=== PATIENT | female | born 2000 | race Caucasian/White ===

== ENCOUNTER 2024-04-14 15:48 | Outpatient (CLI) | payer OTHER, SELFPAY ==
--- NOTE | ~2024-04-14 | US_ITS ---
EXAMINATION: US OB <= 14 weeks fetus DATE: 04/14/2024 INDICATION: Uncertain dating of TECHNIQUE: Real-time pelvic ultrasound utilizing transabdominal probe was performed. The interpretin g radiologist was not present for the study. COMPARISON: None. FINDINGS: The uterus measures 8.9 x 4.6 x 6.0 cm. There is an intrauterine gestational sac. A yolk sac and fet al pole are identified. The crown rump length measures 1.2 cm, which correlates with an estimated ges tational age of 7 weeks and 3 days. heart motion is identified measuring 144 beats per minute ( bpm) by M-mode Doppler. The right ovary measures 2.4 x 1.7 x 2.4 cm. The left ovary measures 2.9 x 1.8 x 2.6 cm. There is no free fluid in the pelvis. IMPRESSION: 1. Single living fetus with heart rate of 144 bpm. 2. Gestational age by ultrasound of 7 weeks 3 day(s) +/- 5 day(s) with ultrasound estimated date of delivery (AVE) of 11/28/2024. Reviewed, dictated and finalized at location A. IMPRESSION: 1. Single living fetus with heart rate of 144 bpm. 2. Gestational age by ultrasound of 7 weeks 3 day(s) +/- 5 day(s) with ultraso und estimated date of delivery (AVE) of 11/28/2024.
== END 2024-04-14 15:49 ==
LOC: MICIMG 15:50
PROVIDERS: PCP Nurse Practitioner Women's Health; Visit Provider Nurse Practitioner Women's Health
DX: Z36.87 Encounter for antenatal screening for uncertain dates (principal); Z3A.01 Less than 8 weeks gestation of pregnancy
CPT/HCPCS: 76801

== ENCOUNTER 2024-06-30 15:21 | Outpatient (CLI) | payer OTHER, SELFPAY ==
--- NOTE | ~2024-06-30 | US_ITS ---
EXAMINATION: US OB /maternal detail DATE: 06/30/2024 16:46 INDICATION: survey TECHNIQUE: Multiple obstetric sonographic images performed. FINDINGS: Ultrasound dated 04/14/2024 There is a single living fetus in breech presentation. The placenta is posterior without placenta pr evia. Placental margin to the cervix is 4.3 cm. Amniotic fluid volume is normal. KIARRA measures 12.4 cm . cardiac activity and movement is noted with a heart rate of 139 beats per minute. The following anatomy was identified as normal: 4 chamber heart 3 vessel cord cord insertion kidneys urinary bladder stomach spine diaphragm ventricles cisterna magna cerebellum The following biometric data were obtained: BPD: 44mm corresponds to gestational age 19 weeks 3 days. Head circumference: 168 mm corresponds to gestational age 19 weeks 3 days. Abdominal circumference: 135 mm corresponds to gestational age 19 weeks 0 days. Femur length: 29 mm corresponds to gestational age 19 weeks 0 days. Head circumference to abdominal circumference ratio: 1.24 (normal range for expected gestational age is 1.09-1.26). Estimated weight: 270 grams +/- 41 grams using Hadlock method, 81%. IMPRESSION: 1: Single living intrauterine with an estimated gestational age of 18weeks 3days by initial ultrasound measurements, with an EDC of 11/28/2024 in breech presentation. 2. Normal survey. Reviewed, dictated and finalized at location B. IMPRESSION: 1: Single living intrauterine with an estimated gestational age of 18 weeks 3days by initial ultrasound measurements, with an EDC of 11/28/2024 in nikko ech presentation. 2. Normal survey.
== END 2024-06-30 15:22 | disposition home or self-care (01) ==
PROVIDERS: PCP Nurse Practitioner Women's Health; Visit Provider Obstetrics & Gynecology Gynecology
DX: Z36.9 Encounter for antenatal screening, unspecified (principal); Z3A.00 Weeks of gestation of pregnancy not specified
CPT/HCPCS: 76805

== ENCOUNTER 2024-09-29 09:31 | Outpatient (CLI) | payer OTHER, SELFPAY ==
--- NOTE | ~2024-09-29 | US_ITS ---
EXAMINATION: US OB follow up DATE: 09/30/2024 8:16 [employer] INDICATION: COMPARISON: 07/08/2024 TECHNIQUE: Real-time transabdominal obstetric ultrasound FINDINGS: Single intrauterine gestation in vertex presentation with placenta posterior. The cervix measures 3.7 cm in length cardiac activity is identified at a rate of 134 bpm. The following biometric data were obtained: Biparietal diameter (BPD): 8.2 cm; corresponding to an approximate gestational age of 32 weeks and 6 days head circumference (HC): 29 cm; corresponding to an approximate gestational age of 32 weeks and 0 day s abdominal circumference (AC): 27.6 cm; corresponding to an approximate gestational age of 31 weeks an d 5 days femur length (FL): 6 cm. Corresponding to an approximate gestational age of 31 weeks and 1 day Amniotic fluid index measures 15.5 cm Estimated weight is 1811 g +/- 271.6 g, which correlates with the 46th percentile when 5 is used as estimated date of delivery. As single measurements, these parameters are each equal to the following estimated gestational ages: BPD: 32 weeks 6 days. HC: 32 weeks 0 days. AC: 31 weeks 5 days. FL: 31 weeks 1 days. estimated gestational age based solely on measurements from this exam is 32 weeks 0 days +/- 2 weeks 2 days. IMPRESSION: Single intrauterine gestation with an approximate gestational age of 32 weeks and 0 days, with cardiac activity identified. Reviewed, dictated and finalized at location A. [employer] IMPRESSION: Single intrauterine gestation with an approximate gestational age of 32 weeks a nd 0 days, with cardiac activity identified.
== END 2024-09-29 09:32 | disposition home or self-care (01) ==
PROVIDERS: PCP Nurse Practitioner Women's Health; Visit Provider Advanced Practice Midwife
DX: O36.5930 Maternal care for other known or suspected poor fetal growth, third trimester, not applicable or unspecified (principal); Z3A.32 32 weeks gestation of pregnancy
CPT/HCPCS: 76816

== ENCOUNTER 2024-11-14 05:41 | Inpatient (IN) | payer OTHER, SELFPAY ==
[2024-11-14] VITALS (111 sets, daily range): BP systolic 94–191; BP diastolic 52–178; PULSE 80–133; RESP 16–18; TEMP 36.5–36.9; O2SAT 90–100; BMI 31.5
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
--- OUTSIDE RECORDS SUMMARY | 2024-11-14 06:11 | XMS_ITS | Clinical Summary ---
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 Gender Identity Not on file Sexual Orientation Not on file Plan of Treatment Health Maintenance Due Date Last Done Comments CHLAMYDIA SCREENING (ANNUAL) 11-24 YEARS 2013 HPV VACCINES (1 - 3-dose series) 2017 DTAP/TDAP/TD VACCINES (1 - Tdap) 2021 HEPATITIS B VACCINES (1 of 3 - 19+ 3-dose series) 2021 CERVICAL CANCER SCREENING 2023 INFLUENZA VACCINE (#1) 2024 PNEUMOCOCCAL VACCINE 0-64 YEARS Aged Out No longer eligible based on patient's age to complete this topic Insurance [facility] [id number] [facility] [id number] Care Teams Payroll Examiner Relationship Specialty Start Date End Date Moises Sevilla MD [address] [facility] [address] [place] [id number] PCP - General Family Practice 11/27/17
--- OUTSIDE RECORDS SUMMARY | 2024-11-14 06:11 | XMS_ITS | Encounter Summary ---
Author Organization [facility] Address [address] [place] [address] Care Team Providers Care Powder Mill Operator Name Role Phone Moises Sevilla MD Primary Care Provider Encounter Details Date Type Department Care Team (Late st Contact Info) Description 03/18/2020 Prep for Procedure [facility] [place], [place] [phone] Cuba Gracia MD [address] [place], [place] [phone] Social History Tobacco Use Types Packs/Day Years Used Date Smoking Tobacco: Never Smokeless Tobacco: Never Alcohol Use Standard Drinks/Week Comments No 0 (1 standard drink = 0.6 oz pur e alcohol) AUDIT-C Answer Date Recorded Frequency of Alcohol Consumption Never 09/03/2018 Average Number of Drinks Not on file 018 Frequency of Binge Drinking Not on file 08/08 Comments No Sex and Gender Information Value Date Recorded Sex Assigned at Not on file Legal Sex Female 9:26 PM CDT Gender Identity Not on file Sexual Orientation Not on file COVID-19 Exposure Response Date Recorded In the last month, have you been in contact with someone who was confirmed or suspected to have Coronavirus / COVID-19? No / Unsure 03/18/2020 4:11 PM CDT documented as of this encounter Plan of Treatment Not on file documented as of this encounter Results * PRE-SURGICAL/PRE-PROCEDURE CORONAVIRUS (COVID 19) (03/21/2020 1:45 PM CDT) CORONAVIRUS SARS COV 2 PCR (RESP) NOT DETECTED NOT DETECTED 03/22/2020 3:39 PM CDT [facility] Comment: A Not Detected (negative) test result for this test means that SARS- CoV-2 RNA was not present in the specimen above the limit of detection. A negative result does not rule out the possibility of COVID-19 and should not be used as the sole basis for treatment or patient management decisions. If COVID-19 is still suspected, based on exposure history together with other clinical findings, re-testing should be considered in consultation with public health authorities. Laboratory test results should always be considered in the context of clinical observations and epidemiological data in making a final diagnosis and patient management decisions. Please review the Fact Sheets and FDA authorized labeling available for health care providers and patients using the following websites: https://www.[employer]/home/Covid-19/HCP/NAAT/fact-sheet2 https://www.[employer]/home/Covid-19/Patients/NAAT/ fact-sheet2 This test has been authorized by the FDA under an Emergency Use Authorization (EUA) for use by authorized laboratories. Due to the current public health emergency, [facility] is receiving a high volume of samples from a wide variety of swabs and media for COVID-19 testing. In order to serve patients during this public health crisis, samples from appropriate clinical sources are being tested. Negative test results derived from specimens received in non-commercially manufactured viral collection and transport media, or in media and sample collection kits not yet authorized by FDA for COVID-19 testing should be cautiously evaluated and the patient potentially subjected to extra precautions such as additional clinical monitoring, including collection of an additional specimen. Methodology: Nucleic Acid Amplification Test (NAAT) includes PCR or TMA Additional information about COVID-19 can be found at the [facility] website: www.[employer]/Covid19. Test performed at [facility] [place] [address] [place] [address] Director: APRIL DIAZ DO,MPH NASOPHARYNGEAL SWAB / Unknown 03/21/2020 1:45 PM CDT us Cuba Gracia MD MICROBIOLOGY - GENERAL CARLENE MORALES Final Result [facility] [address] [place] [address], documented in this encounter Visit Diagnoses Diagnosis Preop examination- Primary Preoperative examination, unspecified documented in this encounter Additional Health Concerns Infection Onset Date Last Indicated Resolved Time COVID-19 Rule Out 03/21/2020 03/21/2020 03/22/2020 3:40 PM CDT COVID-19 Rule Out 07/10/2023 07/10/2023 07/10/2023 10:39 AM CDT COVID-19 Rule Out 01/07/2024 01/07/2024 01/07/2024 10:51 AM CDT documented as of this encounter Care Teams Powder Mill Operator Relationship Specialty Start Date End Date Moises Sevilla MD [address] [place] [address] PCP - General 12/30/16 documented as of this encounter
--- OUTSIDE RECORDS SUMMARY | 2024-11-14 06:11 | XMS_ITS | Data Portability ---
Author Organization [facility], [employer] Address [address] [place] [address] Care Team Providers Care Neurology Manager Name Role Phone MELANIE ARGUELLO Primary Care Provider Assessment Encounter Date Assessment Date Assessment LastModified by Organization Details LastModified Time 09/04/2022 09/04/2022 IUD string check Not availab le 09/04/2022 11:10:16 04/17/2023 04/17/2023 Annual gynecological exam performed. Patient will come back in a year unless there are new symptoms. [email or web address] Not available 04/17/2023 07:52:26 04/24/2023 04/24/2023 Annual gynecological exam performed. Patient will come back in a year unless there are new symptoms. Not available 04/24/2023 15:00:59 Plan of Treatment Reminders Order Date Submit Date Provider Last Modified By Organization Details Last Modified Time Details Appointments None recorded. Lab SARS CoV 2 RNA (COVID-19), QL, tongsman-PCR, respiratory specimen 2019 020 [email or web address] [facility], [address] [place], [address], 0 14:02:43 pap, IG + CT/NG + reflex HPV 2022 023 [facility], [address], [place], [address], 3 16:23:27 Referral None recorded. Procedures None recorded. Surgeries None recorded. Imaging None recorded. Medication Orders None recorded. Patient TargetsNo targets recorded. Patient Instructions Encounter Date Encounter Id Patient Instructions Last Modified By Organization Details Last Modified Time 09/04/2022 [id number] IUD appears to b e in appropriate position at this time. Instructed patient to RTC if pelvic pain, discharge, odor or itching arise for further testing or imaging if indicated. BC summary hand out given for patient to be researching BC options for the future. Questions/concerns addressed. Pt expressed understanding and agreement with plan. Not available 09/04/2022 11:17:29 04/17/2023 [id number] IUD removed ned sneed. Advised patient RTC for insertion of Nexplanon in 7-10 business days. Advised use of barrier method until Nexplanon is inserted. Advised patient schedule insertion and separate annual visit today prior to leaving clinic. Questions/concerns addressed. Pt expressed understanding and agreement with plan. Not available 04/17/2023 15:35:14 04/24/2023 [id number] Counseled regarding prevention of STDs. Counseled regarding contraceptive options. Pt satisfied with condom use at this time. Advised avoidance of tobacco, e-cigarettes/vape pens, alcohol, and drugs . Counseled regarding folic acid supplementation, calcium needs and prevention of osteoporosis. BSE reviewed and recommended. Questions and concerns addressed. Patient expressed understanding. Not available 04/24/2023 15:15:54 Reason for Referral None Reported. Results Created Date Observation Date Name Description Value Unit Range Abnormal Flag Note LastModifiedBy Organization Detail LastModifiedTime 04/24/2004/25/2023 IGP,A PTIMA HPV,C TNG AGE GDLN age gdln acog testing Not Available [facility] ([facility]) [address] [place], [address], 04/30/2023 16:23:27 04/24/20 23 04/28/2023 IGP,A PTIMA HPV,C TNG AGE GDLN chlamydia, nuc. acid amp NEGATI VE negati ve Not Available [facility] ([facility]) [address] [place], [address], 04/30/2023 16:23:27 04/24/20 23 04/28/2023 IGP,A PTIMA HPV,C TNG AGE GDLN gonococcus, nuc. acid amp NEGATI VE negati ve Not Available [facility] ([facility]) [address] [place], [address], 04/30/2023 16:23:27 04/24/20 23 04/30/2023 IGP,A PTIMA HPV,C TNG AGE GDLN diagnosis: ZANE DELAROSA SIMON FOR INTRA EPITH ELIAL LESIO N OR MALPARK GAINES . FUNGA L ORGAN ISMS MORPH OLOGI RAINE CONSI STENT WITH ASHLEY DA SPECI ES ARE PRESE NT. Not Available [facility] ([facility]) [address] [place], [address], 04/30/2023 16:23:27 04/24/20 23 04/30/2023 IGP,A PTIMA HPV,C TNG AGE GDLN specimen adequacy: ZANE Angel Satis facto ry for evalu ation . Endoc ervic al and/o r squam ous metap lasti c cells (endo cervi michi compo nent) are prese nt. Not Available [facility] ([facility]) [address] [place], [address], 04/30/2023 16:23:27 04/24/20 23 04/30/2023 IGP,A PTIMA HPV,C TNG AGE GDLN clinician provided ICD10: ZANE Angel Z12.4 Not Available [facility] ([facility]) [address] [place], [address], 04/30/2023 16:23:27 04/24/20 23 04/30/2023 IGP,A PTIMA HPV,C TNG AGE GDLN performed by: ZANE Chandler ams, Cytot michelle heath t (ASCP ) Not Available [facility] ([facility]) [address] [place], [address], 04/30/2023 16:23:27 04/24/20 23 04/30/2023 IGP,A PTIMA HPV,C TNG AGE GDLN QC reviewed by: ZANE kc Radcl iff, Cytot echno ivana t (ASCP ) Not Available [facility] ([facility]) [address] [place], [address], 04/30/2023 16:23:27 04/24/20 23 04/30/2023 IGP,A PTIMA HPV,C TNG AGE GDLN . . Not Available [facility] ([facility]) [address] [place], [address], 04/30/2023 16:23:27 04/24/20 23 04/30/2023 IGP,A PTIMA HPV,C TNG AGE GDLN note: ZANE T The Pap smear is a scree carrillo test desig sandra to aid in the detec tion of lee ligna nt and malig nant condi tions of the uteri ne cervi x. It is not a diagn ostic proce dure and shoul d not be used as the sole means of detec ting cervi mcihi cance r. Both false -posi tive and false -nega tive repor ts do occur . Not Available [facility] ([facility]) [address] [facility], [place], [address], 04/30/2023 16:23:27 04/24/20 23 04/30/2023 IGP,A PTIMA HPV,C TNG AGE GDLN test methodology: ZANE T This liqui d based ThinP rep(R ) pap test was scree sandra with the use of an image guide d systde m. Not Available [facility] ([facility]) [address] [place], [address], 04/30/2023 16:23:27 04/24/20 23 04/30/2023 IGP,A PTIMA HPV,C TNG AGE GDLN . COMMDEIDRA T The HPV DNA refle x crite florinda were not met with this speci men resul t there fore, no HPV testi ng was perfo rmed. Not Available [facility] ([facility]) [address] [facility], [place], [address], 04/30/2023 16:23:27 Result Notes None recorded. Problems Name Problem SNOMED Code Status Onset Date Resolution Date Notes Provider Name and Address Organization Details Recorded Time Depressive disorder 17773820 Active 022 [facility] 2 10:12:51 Problem Notes None recorded. Procedures Surgical History Date Name Laterality Status Provider Name and Address Organization Details Recorded Time 3 Date of [facility] 14:09:55 3 IUD Removal completed YVETTE DRAPER PA-C [address] [place] [address], [address], [facility] 04/17/2023 15:36:53 Imaging Results None recorded. Procedure Notes None recorded. Medical Equipment None Reported. Allergies Allergen ID Allergen Name Allergen Category Reaction Reaction Severity Criticality Documentation Date Start Date Code Code System Note Provider Name and Address Organization Details Recorded Time 81580 acetamino phen / dextromet horphan / doxylamin e / pseudoeph edrine medicatio n eye swelling Not available Not available 09/04/2022 66168 4 RxNorm [facility] 2 10:12:12 Medications Name Sig Start Date Stop Date Status Note LastModified by Organization Details LastModified Time fluconazole 150 mg tablet Take 1 tablet PO now and 1 tablet PO in 72 hours active Not Available Not Available No t Available prednisone 20 mg tablet 09/04 completed Not Available Not Available Not Available amoxicillin 875 mg tablet 09/04 completed Not Available Not Available Not Available lorazepam 0.5 mg tablet 09/04 completed Not Available Not Available Not Available fluticasone propionate 50 mcg/actuati on nasal spray,suspe nsion 09/04 completed Not Available Not Available Not Available escitalopra m 5 mg tablet 09/04 completed Not Available Not Available Not Available hydrocodone 7.5 mg-acetamin ophen 325 mg/15 mL oral solution TK 15 TO 20 ML PO Q 6 H FOR 7 DAYS 09/04 completed Not Available Not Available Not Available nitrofurant oin monohydrate /macrocryst als 100 mg capsule 04/17 completed Not Available Not Available Not Available duloxetine 20 mg capsule,del ayed release active Not Available Not Available Not Available Kyleena 17.5 mcg/24 hr (up to 5 years) 19.5 mg intrauterin e device Take by intrauter ine route. 04/24 completed Not Available Not Available Not Available Vitals Date Recorded Body weight Body mass index (BMI) Percentile per age and sex Body mass index (BMI) Body height Heart rate Systolic blood pressure Diastolic blood pressure Provider Name and Address Organization Details Last Updated DateTime 2 75691.9 g 22 % 19.6 kg/m2 165.1 cm 80 /min 122 mm[Hg] 70 mm[Hg] [facility] 2 10:11:24 Date Recorded Body height Body mass index (BMI) Body weight Systolic blood pressure Diastolic blood pressure Provider Name and Address Organization Details Last Updated DateTime 04/17/2023 165.1 cm 20.6 kg/m2 87018.45 g 118 mm[Hg] 74 mm[Hg] [facility] 3 15:06:09 Date Recorded Body height Provider Name an d Address Organization Details Last Updated DateTime 04/24/2023 165.1 cm [facility] 04/24/2023 14:25:17 Date Recorded Body mass index (BMI) Body weight Systolic blood pressure Diastolic blood pressure Provider Name and Address Organization Details Last Updated DateTime 04/24/2023 20.6 kg/m2 23698.45 g 117 mm[Hg] 68 mm[Hg] YVETTE DRAPER PA-C [address] [place], [address] , [facility] 04/24/2023 14:52:05 Social History Question Answer Notes LastModified by Organizat ion Details LastModified Time Tobacco Smoking Status Never Smoker [facility], [facility] 09/04/2022 10:16:41 What Is Your Level Of Alcohol Consumption? Moderate Information not available 09/04/2022 What Is Your Level Of Caffeine Consumption? Moderate Information not available 04/24/2023 Are You Currently Employed? Yes Information not available 09/04/2022 Which Illicit Or Recreational Drugs Have You Used? Marijuana Information not available 04/24/2023 Do You Or Have You Ever Used E-cigarettes Or Vape? Current User Of Electronic Cigarettes Information not available 09/04/2022 What Is The Highest Grade Or Level Of School You Have Completed Or The Highest Degree You Have Received? 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 04/24/2023 Information not available 04/24/2023 Do You Or Have You Ever Used Smokeless Tobacco? Never Used Smokeless Tobacco Information not available 09/04/2022 Do You Use Any Illicit Or Recreational Drugs? Yes Information not available 09/04/2022 Do You Or Have You Ever Used Any Other Forms Of Tobacco Or Nicotine? Yes Information not available 09/04/2022 Sex: Unknown Functional Status None recorded. Mental Status None recorded. Family History Relationship Description Onset Age of this Age Resolved Age Notes LastModified by Organization Details LastModified Time Mother Cyst of ovary Not available 09/04 10:15:26 Father No current problems or disability Not available 04/24 14:56:38 Maternal Uncle Hypercholest erolemia Not available 2022 14:56:52 Notes:Dad was adopted - No k nown problems Medical History Condition Response Anxiety Y Depression Y ADD, ADHD or other learning disability Y Gynecological History Statement/Question Response Abnormal Pap N Polycystic Ovarian Syndrome N Date of Last Mammogram Flow Moderate Date of LMP 04/07/2023 STIs/STDs N Herpes N HPV Vaccine Y Duration of Flow (days) 6 Current Control Method Condoms Date of Last Colonoscopy Frequency of Cycle (Q days) 28 Most Recent Bone Density Sexually Active? Y Menses Monthly Y Date of Last Pap Smear 04/24/2023 LMP Approximate Obstetrics History GPAL:G 0 P 0 0 0 0 Past Encounters Encounter ID Performer Location Encounter Start Date Encounter Closed Date Diagnosis/Indication Diagnosis SNOMED-CT Code Diagnosis ICD10 Code Diagnosis Note [id number] MICHELLE REDMOND, [facility] [address] [place] [address] [address] [address] 06/30/2020 13:20:58 06/30/2020 14:03:20 Suspected COVID-19 061094580 Z03.616 [id number] YVETTE DRAPER PA-C [address] [place] [address] 09/04/2022 10:03:50 09/04/2022 11:07:29 Surveillance of intrauterine device contraception done 1513102356 08373 Z30.431 IUD strings visible at os [id number] YVETTE DRAPER PA-C [address] [place] [address] 04/17/2023 14:53:49 04/17/2023 16:35:10 Contraception care management 889790634 Z30.8 Patient case sent for Nexplanon. Removal of intrauterine device 69250866 Z30.432 Removal tolerated well [id number] YVETTE DRAPER PA-C [address] [place] [address] 04/24/2023 14:21:57 04/24/2023 15:35:43 Contraception care management 131269698 Z30.8 Nexplanon insertion Routine gy necologic examination done 0150487062 9101 Z01.419 Screening for malignant neoplasm of cervix 894504952 Z12.4 Health Concerns Section Related Observation LastModified by Organization Detai ls LastModified Time None Recorded Concern Status LastModified by Organization Details LastModified Time None Recorded Advance Directives Directive None Recorded Payers Encounter Date Sequence Insurance Name Policy Number Policy Arizmendi Covered Member ID Arizmendi Member ID Guarantor Name 06/30/2020 1 [facility] Pritesh Kerr [id number] Pritesh Kerr 09/04/2022 1 [facility] Pritesh Kerr [id number] Pritesh Kerr 04/17/2023 1 [facility] [id number] Pritesh Kerr [id number] Pritesh Kerr 04/24/2023 1 [facility] [id number] Pritesh Kerr [id number] Pritesh Kerr Notes Date Note Type Note Provider Name and Address Organization Details Recorded Time 09/04/2022 text/html 22 year old presents as a new pt to clinic for IUD check. Kyleena was placed 4 years at [facility] medical in [place], [place]. She denies problems with IUD today and reports to self-check her strings. She is aware that her Kyleena will be expiring after 5 years. She reports to have had two episodes of bleeding after intercourse 2-3 weeks ago. She has had intercourse with same partner one other time since bleeding and did not have bleeding after that encounter. She denied pelvic pain, abnormal discharge, vaginal itching/burning/od or but sought STD testing at [facility] which was negative. She continues to denies c/o today but wants to verify IUD placement. YVETTE DRAPER PA-C [address] [place] [address], [address], [facility] 09/04/2022 11:17:33 04/17/2023 text/html Patient presents for removal of IUD. She c/o pain with intercourse and occasionally will feel pain when walking. YVETTE DRAPER PA-C [address] [place], [address], [facility] 04/17/2023 15:37:18 04/24/2023 text/html Annual GYNReport ed bypatient.Menstrua l cycle:Normal menses Urinary symptoms:No hematuria; No incontinence Vulva:No genital lesion Vagina:Normal vaginal discharge Breast:No breast pain; No breast lump; No nipple discharge Current Contraception:Sati sfied with current contraception; Condoms Sexual complaints:No sexual complaints; No pain during intercourse; Normal libido Menopausal Symptoms:No menopausal symptoms; Normal vaginal lubrication Psychological symptoms:No depression; No anxiety; No PMDD Preventive measures:Encourage self breast examination; Encourage regular exercise; Encourage no tobacco use Patient is here today to have a Nexplanon implant inserted for desired control method. She wants to talk about hormone BC before proceeding. She states since having IUD removed, she feels more like herself. Periods are better and cramping and acne have improved. Pt declines Nexplanon insertion. Will perform annual well womens exam and first pap smear today instead. 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 YVETTE DRAPER PA-C [address] [place] [address], [address], [facility] 04/24/2023 15:17:04 OBGyn Episode No OBEpisode recorded.
--- OUTSIDE RECORDS SUMMARY | 2024-11-14 06:12 | XMS_ITS | Clinical Summary ---
Author Organization [facility] Address Formerly [facility] [place] [address] Care Team Providers Care Supply Chain Logistics Manager Name Role Phone Moises Sevilla MD Primary Care Provider Allergies Active Allergy Reactions Criticality Noted Date Comments Umoozbura-Tcfwugpdqn-Sw-Ap ap Rash Low 03/18/2020 NO ISSUES WITH TYLENOL. Medications DULoxetine (CYMBALTA) 20 MG capsuleIndicatio ns:Anxiety associated with depression TAKE 1 CAPSULE(20 MG) BY MOUTH DAILY 90 capsule 1 08/28/2023 Active Active Problems Problem Noted Date Diagnosed Date Depressive disorder 09/03/2022 ADD (attention deficit disorder) 12/28/2016 Allergic rhinitis 12/28/2016 Anxiety associated with depression 12/28/2016 Resolved Problems Problem Noted Date Diagnosed Date Resolved Date Dysuria 07/01/2018 09/03/2018 Acute cystitis 07/01/2018 09/03/2018 Contraceptive surveillance 12/28/2016 1 11/24/2022 Fatigue 12/28/2016 09/23/2023 Immunizations Name Administration Dates Next Due Meningococcal (Menactra) 05/20/2019 Family History Relation Status Comments Father Alive Mother Alive Social History Tobacco Use Types Packs/Day Years Used Date Smoking Tobacco: Some Days Passive Smoke Exposure: Current Smokeless Tobacco: Never Tobacco Cessation:Ready to Q uit: No; Counseling Given: Yes Comments:Dr. Sevilla will discuss precautions -vape Alcohol Use Standard Drinks/Week Comments Yes 0 (1 standard drink = 0.6 oz pur e alcohol) once a week AUDIT-C Answer Date Recorded Frequency of Alcohol Consumption Never 09/03/2018 Average Number of Drinks Not on file 018 Frequency of Binge Drinking Not on file 08/08 PHQ-2 Answer Date Recorded Patient Health Questionnaire-2 Score 0 01/07/2024 Comments No Sex and Gender Information Value Date Recorded Sex Assigned at Not on file Legal Sex Female 9:26 PM CDT Gender Identity Not on file Sexual Orientation Not on file Last Filed Vital Signs Vital Sign Reading Time Taken Comments Blood Pressure 107/75 02/10/2024 10:19 AM CDT Pulse 75 02/10/2024 10:19 AM CDT Temperature 37.2 C (98.9 F) 02/10/2024 10:19 AM CDT Respiratory Rate 18 01/07/2024 10:26 AM CDT Oxygen Saturation 99% 02/10/2024 10:19 AM CDT Inhaled Oxygen Concentration - - Weight 54 kg (119 lb) 02/10/2024 10:19 AM CDT Height 160 cm (5' 3 ) 09/23/2023 10:07 AM PLAYROOM ATTENDANT Body Mass Index 21.08 09/23/2023 10:07 AM PLAYROOM ATTENDANT Plan of Treatment Health Maintenance Due Date Last Done Comments Cervical Cancer Screening Pa p Smear (Age 21 to 29) Every 3 Years 2002 Cervical Cancer Screening 2002 Annual Physical 2005 Pneumococcal Vaccine: Pediat rics (0 to 5 Years) and At-Risk Patients (6 to 64 Years) (1 of 2 - PCV) 2008 HPV Vaccines (1 - 3-dose series) 2017 Chlamydia Screening Females ages 16-24 2018 Meningococcal B Vaccine (1 o f 2 - Standard) 2018 Hepatitis C 2020 DTaP, Tdap and Td Vaccines ( 1 - Tdap) 2021 Hepatitis B Vaccines (1 of 3 - 19+ 3-dose series) 2021 COVID-19 Vaccine (1 - 2023-2 5 season) 2024 Influenza Adult (#1) 2024 PHQ-2 (Physician [place]) 10/07/2024 01/07/2024 PHQ-2 (Physician [place]) 01/06/2025 01/07/2024 Meningococcal Vaccine Completed 05/20/2019 RSV Immunizations Under 20 Months Aged Out No longer eligible based on patient's age to complete this topic Insurance [facility] Care Teams Supply Chain Logistics Manager Relationship Specialty Start Date End Date Moises Sevilla MD [address] [facility] [address] [place] [address] PCP - General 12/30/16
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
--- NOTE | 2024-11-14 06:21 | LDADM ---
This patient, Jimena Kerr, was admitted to Labor/Delivery/Recovery 107 on 11/14/24 at 05:41. Plans for labor, pain management and were discussed with patient. Patient/family oriented to hospital policies and general routines including ID bracelet, bed and alarms, visiting hours, pain management, procedures, bathroom and other care routines, personal items, smoking policy, room service/diet and guest tray routines, infant security routines, and visiting hours. Patient/Family are encouraged to report perceived risks to care and to ask questions if they do not understand what they are told or what they should do. See OBIX for further documentation.
[2024-11-14 06:55] LABS: Basophils Absolute Auto 0.1 K/mm3 (0.0-0.1); Basophils Percent Auto 0.7 % (0.2-1.2); Eosinophils Absolute Auto 0.1 K/mm3 (0-0.3); Eosinophils Percent Auto 0.7 % (0-4.4); Hematocrit 36.6 % (37.0-47.0); Hemoglobin 12.2 g/dL (12.0-15.0); Immature Granulocyte Absolute 0.05 K/mm3 (0.00-0.031); Immature Granulocyte Percent A 0.5 % (0-0.5); Lymphocytes Absolute Auto 1.83 K/mm3 (0.9-3.2); Lymphocytes Percent Auto 18.5 % (18.3-44.2); Mean Corpuscular HGB Conc 33.3 g/dl (32-36); Mean Corpuscular Hemoglobin 27.4 pg (26-34); Mean Corpuscular Volume 82.2 fl (80-100); Monocytes Absolute Auto 0.6 K/mm3 (0.1-0.6); Monocytes Percent Auto 6.3 % (2.6-8.5); Neutrophils Absolute Auto 7.3 K/mm3 (1.3-6.7); Neutrophils Percent Auto 73.3 % (45.5-73.1); Platelet Count Result 243 k/mm3 (150-375); Red Blood Count 4.45 M/mm3 (4.2-5.4); Red Cell Distribution Width 13.1 % (11.5-14.5); White Blood Count 9.9 K/mm3 (4.5-10.0)
[2024-11-14] MEDS: LACTATED RINGERS 1,000 ML 125 ML IV CONT ×2 (07:19→10:05)
[2024-11-14] MEDS: OXYTOCIN 30 UNITS/NS 500 ML 30 UNITS/500 ML BAG 6 UNITS IV CONT (07:19)
[2024-11-14 07:45] LABS: HIV 1/2 Ab P24 Ag Result Negative (Negative)
[2024-11-14 10:50] LABS: Rapid Plasma Reagin Non-Reactive (NonReactive)
[2024-11-14] MEDS: miSOPROStol 200 MCG TABLET 1000 MCG RECTAL (15:06)
[2024-11-14] MEDS: TRANEXAMIC ACID 1,000MG/ISO100 1,000 MG/100 ML BAG 200 MG IVPB (15:16)
--- NOTE | 2024-11-14 15:19 | WPDOBADMIT ---
Obstetrics - Admit Note Admission Note: record reviewed. No pertinent additions to the history and/or any subsequent changes in the physical findings that are not consistent with the expected course of the were found. Additions to the history and/or subsequent changes in the physical findings follow. Admit for srom, anticipate vaginal delivery
--- NOTE | 2024-11-14 15:19 | PM.OBPRVD ---
OB - Vaginal Delivery Note Procedure Delivery date: 11/14/24 Induction method: None Delivery augmentation: Pitocin Delivery monitor: External FHT and External Uterine Route of delivery: Episiotomy description: None Laceration Description: None Specimen: No Quantitative Blood Loss (ml): 709 Anesthesia type: Epidural Disposition: Floor Complications: Other complications Narrative: fundus boggy after delivery of placenta, fundal massage, pitocin, cytotec and TXA, bleeding then stopped. Baby Date of : 11/14/24 Time of : 14:59 Gestational Age by Date: 38 gender: Male presentation: vertex position: Left Occiput Anterior Placenta delivery description: Spontaneous Cord Vessel Description: 3 Vessels score one minute: 8 score five minutes: 9
[2024-11-14] MEDS: OXYTOCIN 30 UNITS/NS 500 ML 30 UNITS/500 ML BAG 125 UNITS IV CONT (15:30)
--- NOTE | 2024-11-14 17:45 | OBPPTRN ---
Patient transferred to post room # 290 via wheelchair. Support person present. Oriented to unit, room, information board, rooming in, admission packet and security measures. Patient verbalizes understanding.
[2024-11-14] MEDS: IBUPROFEN 600 MG TABLET PO (20:45)
[2024-11-15 00:55] VITALS: BP 123/69; RESP 16; TEMP 36.7
[2024-11-15 05:26] LABS: Hematocrit 30.4 % (37.0-47.0); Hemoglobin 9.8 g/dL (12.0-15.0)
[2024-11-15 06:50] VITALS: BP 114/77; PULSE 81; RESP 18; TEMP 36.7; O2SAT 99
[2024-11-15] MEDS: IBUPROFEN 600 MG TABLET PO ×3 (08:51→22:11)
[2024-11-15] MEDS: MULTIVIT/MIN/PREN/FOL AC/IRON TABLET 1 TAB PO (08:52)
[2024-11-15] MEDS: POLYSACCHARIDE IRON COMPLEX 150 MG CAPSULE PO ×2 (08:52→16:23)
[2024-11-15] MEDS: DULoxetine HCL 30 MG CAPSULE.DR PO (08:52)
[2024-11-15] MEDS: DOCUSATE SODIUM 100 MG CAPSULE PO ×2 (08:52→16:23)
--- NOTE | 2024-11-15 11:44 | P.PNOB_ITS ---
OB - PN: Subj Subjective Date/time seen: 11/15/24 11:44 Patient comments: no complaints, pain well controlled, incisional pain, tolerating diet and flatus present OB - PN: Obj Data Labs 11/15/24 05:17 Labs: Laboratory Results - last 24 hr 11/15/24 05:17 Hgb 9.8 L Hct 30.4 L OB - PN A/P Plan day: 1 Plan: routine care Comments: No problems, routine care Time Spent With Patient Time: Total time spent is greater than 50% in coordination of care (as documented) at patient's floor/unit and/or counseling patient: Exam 2 Const: General: comfortable, no acute distress and alert Resp: Effort & Inspection: normal respiratory effort Auscultation: no crackles, no rales and no rhonchi Cardio: Rate: regular rate Heart sounds: no click, no murmurs and no rubs GI: Inspection: non-distended GI Palp: No Tenderness to palpation present (GI) Auscultation: normal bowel sounds Other: Incision - CDI Extrem: General: normal to inspection, no pedal edema and no calf tenderness
[2024-11-15 20:00] VITALS: BP 117/72; PULSE 101; RESP 16; TEMP 36.7; O2SAT 98
--- NOTE | 2024-11-16 08:00 | PC.NURSE ---
Introductions were made, then consulted with patient to assess needs related to . Mother led the conversation with her?plans to feed?her and the?experience so far. Mother has bilateral inverted nipples and has been using a nipple shield to latch baby as well as using her breast pump, baby also receiving 2-4 mls of breastmilk after the last 3-4 feedings. Encouraged understanding of the benefits of skin to skin (demonstrating unwrapping and placing upright on her chest), stimulating with massage touch, changing positions to encourage wakefulness, how to watch for early feeding cues, responsive feeding, feeding on demand (aiming for 8-12 times in 24 hours, about every 2-3 hours), milk production, building/maintaining a milk supply, duration of feeding, signs of adequate intake/output and how to record on the feeding sheet. Mother works well with her infant with encouragement and education. Reviewed positioning and ear, shoulder, hip alignment, supporting the breast to facilitate a deep latch, asymmetrical latch (off-center), leading with the chin with a big, open, wide gape and body close to mother. When RN arrived in the room, baby had just finished nursing with the nipple shield and was very content and relaxed in mother's arms. RN encouraged mother to try and latch without the shield, by letting baby nurse for a few mins with the shield, remove and then latch or use the breast pump for a few mins to pull out nipple and see if baby will latch.Education given to the mother of how to visualize the suckling (with good rocking jaw motion), swallows (dropping of the lower jaw) and how to listen for drinking at the breast (the ka sound).Reviewed comfort measures of healing with a warm, wet washcloth to rinse breast, then leave open to air-dry, good handwashing when or touching the breast/nipples to prevent infection. Mother voiced understanding of skin to skin, stimulating with massage touch, responsive feedings, hand expressed colostrum, talking to infant to encourage if it has been 2 -2.5 hours since the start of the last , to call if does not latch, or if there is discomfort with . RN also encouraged mother to call out with the next feeding so RN could assess latch. Resources used for education were facilitated with the [visual educational handouts/ tool/mom and baby guide], Inpatient/outpatient resources provided with business card, feeding sheet, name written on the communication board, and the mom/baby guide. Mother is feeding appropriately for growth of and understands stimulating to eat if needed. has had appropriate feedings in the last 24 hours meets the outcomes for weight, output, blood sugar and jaundice at this time. Reinforced understanding of milk production, transition of milk, signs of adequate intake, transition of stool, prevention/relief of engorgement, plugged ducts, mastitis, responsive watching for feeding cues, the different methods of stimulating infant to breastfeed 1-3 hours after the start of the last feeding, community resources, and when to call a provider using the resource of the feeding sheet along with the mom and baby guide. Mother voiced understanding of the information shared, is confident to continue effectively her at home, when to call for assistance, denies any additional assistance or education at this time. Reported to the Primary RN.
[2024-11-16 08:10] VITALS: BP 117/77; PULSE 79; RESP 16; TEMP 36.8; O2SAT 99
[2024-11-16] MEDS: MULTIVIT/MIN/PREN/FOL AC/IRON TABLET 1 TAB PO (08:17)
[2024-11-16] MEDS: DULoxetine HCL 30 MG CAPSULE.DR PO (08:17)
[2024-11-16] MEDS: DOCUSATE SODIUM 100 MG CAPSULE PO (08:17)
[2024-11-16] MEDS: POLYSACCHARIDE IRON COMPLEX 150 MG CAPSULE PO (08:17)
[2024-11-16] MEDS: IBUPROFEN 600 MG TABLET PO (08:17)
--- NOTE | 2024-11-16 08:35 | P.PNOB_ITS ---
OB - PN: Subj Subjective Date/time seen: 11/16/24 08:35 Patient comments: no complaints, pain well controlled and tolerating diet OB - PN: Obj Data Labs 11/15/24 05:17 OB - PN A/P Plan day: 2 Plan: routine care and discharge home Time Spent With Patient Time: Total time spent is greater than 50% in coordination of care (as documented) at patient's floor/unit and/or counseling patient: Exam 2 Const: General: comfortable and no acute distress Resp: Effort & Inspection: normal respiratory effort Auscultation: no rales, no rhonchi and no wheezes Cardio: Rate: regular rate Heart sounds: no click, no murmurs and no rubs GI: GI Palp: Yes Soft to palpation and No Tenderness to palpation present (GI) Auscultation: normal bowel sounds Extrem: General: normal to inspection, no pedal edema and no calf tenderness
--- NOTE | 2024-11-16 10:23 | PC.NURSE ---
Patient viewed the discharge video Mother & Baby Care, The First Two Weeks . Patient was given the opportunity and encouraged to ask questions. Patient verbalized understanding of information shared and has been given the mother/baby guide for home reference.
[2024-11-17 13:58] VITALS: BP 130/77; PULSE 94; RESP 18; TEMP 36.6; O2SAT 100
--- NOTE | 2024-11-18 10:34 | PM.OBDSVD ---
DS: Admitting Diagnosis Discharge Date 11/16/24 Admitting Diagnosis 11/18/24 DS: Discharge Diagnosis Discharge Diagnosis (1) Vaginal delivery: Code(s): O80 - Encounter for full-term uncomplicated delivery Status: Acute OB - DS: Summary OB Procedures : None OB Procedures Intrapartum: Spontaneous Vag Delivery OB Procedures: : None Peripartum Data Laceration Description: None Episiotomy description: None Time Spent with Patient Time attestation: Total time spent providing and/or coordinating discharge services: Discharge Plan Discharge Consulting providers: Sophie Graham Discharging Clinician: Desmond Fan Patient Disposition: Home, Self-Care Activity: pelvic rest Diet: regular Discharge Instructions: Education: Mom and Baby Guide Given to: Mother Follow-Up: Call your delivering provider's office for an appointment to be seen in: Call for appointment Mom and baby should come to the [facility] for the follow-up appointment. Appointment Date/Time: November 17, 2024 at 1:30 pm What to expect at your follow-up visit: Blood Pressure Check Physical Assessment Call [phone] if you are unable to keep your appointment time. BREAST CARE: * Wear a snug supportive bra. * For engorgement discomfort: Breast Feeding: * Apply warm moist washcloths * Express milk as needed to relieve engorgement * Wear loose clothing * For sore nipples: * Identify correct latch-on * Apply warm moist washcloths before and after nursing * Air dry nipples after nursing * May apply Lansinoh cream to nipples PERINEAL CARE: * Until bleeding stops, use your james bottle after urinating * Change your pad frequently throughout the day * You may take sitz baths several times a day (fill your bathtub with warm water and soak for 20 minutes.) Do NOT bathe in the water * No tub baths until seen by your physician - You may shower ACTIVITY: * Rest as much as possible. * Do not exercise or lift anything heavier than your baby (such as laundry or other children.) * Avoid stairs or driving as much as possible. * Do not put anything into the vagina. No douching, tampons, or sexual activity until seen by physician. NOTIFY PHYSICIAN IF YOU HAVE ANY QUESTIONS OR IF ANY OF THE FOLLOWING SYMPTOMS OCCUR: * If your vaginal bleeding becomes foul smelling. * If your vaginal bleeding becomes more heavy than a period or if your bleeding changes from pink to bright red. However, you may pass an occasional walnut-sized clot once or twice for the first week . * If you experience a sharp, shooting pain in your calves. * If you discover a hard, reddened area on your breast or if you experience flu-like symptoms. DIET: * Eat regular, well-balanced meals. * Drink plenty of fluids daily. If , drink to thirst. Patient Language: [place] Citizen Stand Alone Forms: General Discharge Information Follow-up/Referrals: Desmond Fan MD [Physician] - Discharge Medications: Continued duloxetine [Cymbalta] 30 mg capsule,delayed release(DR/EC) 30 mg PO DAILY docusate sodium [Colace] 100 mg capsule 100 mg PO DAILY Unisom (doxylamine) 25 mg tablet 12.5 mg PO ONCE Vitamin B-6 50 mg capsule 50 mg PO DAILY cholecalciferol (vitamin D3) 250 mcg (10,000 unit) capsule 250 mcg PO DAILY magnesium glycinate 118 mg magnesium capsule 100 mg PO DHA 200 mg capsule 200 mg PO Date of admission: 11/14/24 05:41 Primary Care Provider: Di,Moises Allred Admitting Provider: Desmond Fan Attending physician on admission: Desmond Fan Condition: Stable
== END 2024-11-16 11:46 | disposition home or self-care (01) | DRG 807 ==
LOC: ANHLDR 06:09 → ANHOB2 18:19
PROVIDERS: Admitting Provider Obstetrics & Gynecology; PCP Family Medicine; Referring Provider Advanced Practice Midwife; Visit Provider Obstetrics & Gynecology
DX: O69.81X0 Labor and delivery complicated by cord around neck, without compression, not applicable or unspecified (principal); Z37.0 Single live birth; Z3A.38 38 weeks gestation of pregnancy; O99.893 Other specified diseases and conditions complicating puerperium; N85.8 Other specified noninflammatory disorders of uterus
CPT/HCPCS: 36415; 85014; 85018; 85025; 86592; 86703; 86850; 86900; 86901; A9270; G0432; J2590; J2795; J7120